=== PATIENT | male | born 1960 | race Hispanic/Latino ===

== ENCOUNTER 2017-09-15 14:49 | Emergency (ER) | payer BC ==
[2017-09-15 15:19] VITALS: BMI 38.5
[2017-09-15 15:23] VITALS: TEMP 98.9
[2017-09-15 16:26] LABS: FLUID TYPE SYNOVIAL FLUID
[2017-09-15 16:30] LABS: BASO # 0.05 K/mm3 (0.0-2.0); BASO % 0.5 % (0.0-3.0); EOS # 0.2 (0.0-0.7); EOS % 1.7 % (1.5-5.0); GRAN # 6.3 (1.4-6.5); GRAN % 57.8 % (50.0-68.0); HEMATOCRIT 40.1 % (42.0-52.0); LYMPH # 2.4 (1.2-3.4); LYMPH % 21.7 % (22.0-35.0); MEAN CORPUSCULAR HEMOGLOBIN 34.3 pg (25.0-35.0); MEAN CORPUSCULAR HGB CONC 33.9 g/dl (31.0-37.0); MONO % 18.3 % (1.0-6.0); RED CELL DISTRIBUTION WIDTH 12.3 % (11.5-14.5); WHITE BLOOD COUNT 10.9 10^3/ul (4.5-11.0)
[2017-09-15 16:41] LABS: INR 1.24 (0.93-1.08); PARTIAL THROMBOPLASTIN TIME 27.8 Seconds (25.1-36.5)
--- NOTE | 2017-09-15 16:43 | ED PDOC ---
Arrival/HPI - General Historian: Patient <Jessica Arnold A - Last Filed: 09/15/17 19:30> <Wilfrid Jansen - Last Filed: 09/17/17 18:52> - General Chief Complaint: Lower Extremity Problem/Injury Time Seen by Provider: 09/15/17 15:25 - History of Present Illness Narrative History of Present Illness (Text): 09/15/17 16:40 57yo male with PMHx of gout who was referred to ED by his PMD for right knee swelling/pain. Patient states the knee has been swollen for 2days. He saw his PMD today for steroid injection and was referred to ED. He states he had fever for 2hours yesterday. He denies trauma, chills, nausea, vomiting, any other complaint. (Jessica Arnold A) Past Medical History - Provider Review Nursing Documentation Reviewed: Yes - Infectious Disease Hx of Infectious Diseases: None - Cardiac Hx Cardiac Disorders: Yes Hx Hypertension: Yes - Renal Hx Kidney Stones: Yes - Integumentary Other/Comment: swelling left knee - Musculoskeletal/Rheumatological Hx Falls: No - Psychiatric Hx Substance Use: No - Surgical History Other/Comment: umbilical hernia sx with mesh, 2 arthoscopic knee sx's to remove cartilage about 20 yrs ago to left knee - Anesthesia Hx Anesthesia: Yes Hx Anesthesia Reactions: No Hx Malignant Hyperthermia: No - Suicidal Assessment Feels Threatened In Home Enviroment: No <Jessica Arnold A - Last Filed: 09/15/17 19:30> Family/Social History - Physician Review Nursing Documentation Reviewed: Yes Family/Social History: Unknown Family HX Smoking Status: Never Smoked Hx Alcohol Use: Yes (social) Hx Substance Use: No Hx Substance Use Treatment: No <Jessica Arnold A - Last Filed: 09/15/17 19:30> Allergies/Home Meds <Jessica Arnold A - Last Filed: 09/15/17 19:30> <Wilfrid Jansen - Last Filed: 09/17/17 18:52> Allergies/Adverse Reactions: Allergies No Known Allergies Allergy (Verified 09/15/17 15:19) Home Medications: Home Meds Medication Instructions Recorded Confirmed Colchicine [Colcrys] 0.6 mg PO TID 11/03/16 11/03/16 Labetalol [Trandate] 200 mg PO DAILY 11/03/16 11/03/16 Losartan Potassium [Cozaar] 100 mg PO DAILY 11/03/16 11/03/16 amLODIPine [Norvasc] 5 mg PO DAILY 11/03/16 11/03/16 cloNIDine [Catapres] 0.3 mg PO TID 11/03/16 11/03/16 Review of Systems - Physician Review All systems were reviewed & negative as marked: Yes - Review of Systems Constitutional: Normal Eyes: Normal ENT: Normal Respiratory: Normal Cardiovascular: Normal Gastrointestinal: Normal Genitourinary Male: Normal Musculoskeletal: Arthralgias (right knee pain/swelling) Skin: Normal Neurological: Normal Endocrine: Normal Hemo/Lymphatic: Normal Psychiatric: Normal <Diru,Happiness A - Last Filed: 09/15/17 19:30> Physical Exam Vital Signs Reviewed: Yes Temperature: Afebrile Blood Pressure: Normal Pulse: Regular Respiratory Rate: Normal Appearance: Positive for: Well-Appearing, Non-Toxic, Comfortable Pain Distress: None Mental Status: Positive for: Alert and Oriented X 3 - Systems Exam Head: Present: Atraumatic, Normocephalic Pupils: Present: PERRL Extroacular Muscles: Present: EOMI Conjunctiva: Present: Normal Mouth: Present: Moist Mucous Membranes Neck: Present: Normal Range of Motion Respiratory/Chest: Present: Clear to Auscultation, Good Air Exchange. No: Respiratory Distress, Accessory Muscle Use Cardiovascular: Present: Regular Rate and Rhythm, Normal S1, S2. No: Murmurs Abdomen: Present: Normal Bowel Sounds. No: Tenderness, Distention, Peritoneal Signs Back: Present: Normal Inspection Upper Extremity: Present: Normal Inspection. No: Cyanosis, Edema Lower Extremity: Present: Edema (2+), NORMAL PULSES, Tenderness (Diffuse right knee), Swelling (right knee), Neurovascularly Intact. No: CALF TENDERNESS, Cyanosis, Normal ROM (Limited on flexion secondary to pain), Erythema, Temperature Abnormalties Neurological: Present: GCS=15, CN II-XII Intact, Speech Normal Skin: Present: Warm, Dry, Normal Color. No: Rashes Psychiatric: Present: Alert, Oriented x 3, Normal Insight, Normal Concentration <Diru,Happiness A - Last Filed: 09/15/17 19:30> Vital Signs Temp Pulse Resp BP Pulse Ox 09/15/17 19:00 76 16 152/90 H 99 09/15/17 15:22 98.9 F 90 18 161/97 H 96 Medical Decision Making <Jessica Arnold - Last Filed: 09/15/17 19:30> <Wilfrid Jansen - Last Filed: 09/17/17 18:52> ED Course and Treatment: 09/15/17 19:30 PT was hemodynamcially stable in ED. Noted to be eating a sandwich. Case was DW Dr. Sands. He notes taht he saw patient in ED and referred him to ED for septic knee r/o. Lab was noted without leukocytosis. Doppler US was negative for DVT Dr. Delarosa saw patient in ED and did Arthrocentesis on the knee. synovial fluid show WBC of 100,000.00 with neutrophils. Plan was to admit pt for IV abx. Pt however declined admission. Case was KATHY Sin and he states patient can be DC home with oral abx to f/u with Dr. Delarosa. Patient was advised by Dr. Delarosa to see him on Monday. Vanco and Rocephin was given in ED. He will be DC home with Doxycycline and Augmentin. strongly advised to f/u with Dr. Delarosa on Monday. Advised TRT ED for any new or worsening symptoms. ( Jessica Arnold) - Lab Interpretations Microbiology Results: Microbiology Results 09/15/17 16:15 Blood-Venous Blood Culture - Preliminary NO GROWTH AFTER 48 HOURS Lab Results: 09/15/17 16:15 09/15/17 16:15 Lab Results 09/15/17 16:15: Fluid Type Synovial fluid, Synovial WBC 898128.0 H, Synovial RBC 2000.0 H, Synovial Neutrophils 92.7 H, Synovial Lymphocytes 7.3 H, Synov Monos/Macrophage TEST NOT PERFORMED, Synovial Fluid Comment Lt. yellow color 09/15/17 16:15: PT 13.6 H, INR 1.24 H, APTT 27.8 09/15/17 16:15: Sodium 137, Potassium 3.9, Chloride 100, Carbon Dioxide 26, Anion Gap 15, BUN 11, Creatinine 1.0, Est GFR ( Amer) > 60, Est GFR (Non- Af Amer) > 60, Random Glucose 156 H, Calcium 9.4, Total Bilirubin 1.4 H, AST 60 H, ALT 50, Alkaline Phosphatase 48, Total Protein 7.5, Albumin 4.1, Globulin 3.4 , Albumin/Globulin Ratio 1.2 09/15/17 16:15: WBC 10.9, RBC 3.97, Hgb 13.6 L, Hct 40.1 L, MCV 101.0, MCH 34.3 , MCHC 33.9, RDW 12.3, Plt Count 217, MPV 10.0, Gran % 57.8, Lymph % (Auto) 21.7 L, [place] % (Auto) 18.3 H, Eos % (Auto) 1.7, Baso % (Auto) 0.5, Gran # 6.30, Lymph # 2.4, [place] # 2.0 H, Eos # 0.2, Baso # 0.05 - RAD Interpretation Radiology Orders: 09/15/17 15:58 DUPLEX LOWER EXTRM VEIN RIGHT [US] Stat 09/15/17 16:55 KNEE W PATELLA RIGHT 3 VIEW [RAD] Stat - Medication Orders Current Medication Orders: Discontinued Medications Ceftriaxone Sodium (Rocephin 1 Gram Ivpb (D5w)) 1 gm in 100 mls @ 200 mls/hr IVPB STAT DIEGO PRN Reason: Protocol Last Admin: 09/15/17 18:01 Dose: 200 mls/hr eMAR Start Stop Document 09/15/17 18:01 SC (Rec: 09/15/17 18:01 SC [id number]) Intravenous Solution Start Date 09/15/17 Start Time 18:01 End Date 09/15/17 End time 18:31 Total Infusion Time 30 Vancomycin HCl (Vancomycin 1gm) 1 gm in 250 mls @ 167 mls/hr IVPB STAT STA PRN Reason: Protocol Stop: 09/15/17 19:03 Last Admin: 09/15/17 18:40 Dose: 167 mls/hr eMAR Start Stop Document 09/15/17 18:40 SC (Rec: 09/15/17 18:58 SC [id number]) Intravenous Solution Start Date 09/15/17 Start Time 18:40 End Date 09/15/17 End time 20:10 Total Infusion Time 90 - PA / HYDROPRESS OPERATOR / Resident Statement /DO has reviewed & agrees with the documentation as recorded. <Wilfrid Jansen - Last Filed: 09/17/17 18:52> Disposition/Present on Arrival - Present on Arrival Any Indicators Present on Arrival: No History of DVT/PE: No History of Uncontrolled Diabetes: No Urinary Catheter: No History of Decub. Ulcer: No History Surgical Site Infection Following: None - Disposition Have Diagnosis and Disposition been Completed?: Yes Disposition Time: 19:40 Patient Plan: Discharge <Jessica Arnold - Last Filed: 09/15/17 19:30> <Wilfrid Jansen - Last Filed: 09/17/17 18:52> - Disposition Diagnosis: Septic arthritis Disposition: HOME/ ROUTINE Condition: STABLE Discharge Instructions (ExitCare): Septic Arthritis (GEN) Additional Instructions: Follow up with Dr. Delarosa on Monday Return to ED immediately for redness, lethargy, worsening symptoms. Prescriptions: Amoxicillin/Clavulanate [Augmentin 875 MG-125 MG] 1 tab PO BID #20 tab Doxycycline Hyclate [Doryx] 100 mg PO BID #20 cap Referrals: Brien Sands MD [Primary Care Provider] - Follow up with primary Amrit Delarosa DO [Staff Provider] - Follow up with primary Forms: [employer] ([place])
[2017-09-15 16:45] LABS: ALB/GLOB RATIO 1.2 (1.1-1.8); ALKALINE PHOSPHATASE 48 U/L (38-126); ALT/SGPT 50 U/L (7-56); AST/SGOT 60 U/L (17-59); BILIRUBIN,TOTAL 1.4 mg/dL (0.2-1.3); BLOOD UREA NITROGEN 11 mg/dL (7-21); CALCIUM 9.4 mg/dL (8.4-10.5); CARBON DIOXIDE 26 mmol/L (21-33); CHLORIDE 100 mmol/L (98-107); GFR AFRICAN-AMERICAN > 60; GLUCOSE,RANDOM 156 mg/dL (70-110); POTASSIUM 3.9 mmol/L (3.6-5.0); SODIUM 137 mmol/L (132-148); TOTAL PROTEIN 7.5 g/dL (5.8-8.3)
[2017-09-15 16:52] LABS: SYNOVIAL FLUID LYMPHOCYTE 7.3 % (0-0); SYNOVIAL FLUID NEUTROPHIL 92.7 % (0-0); SYNOVIAL FLUID TOTAL COUNT 100 (0-0)
[2017-09-15] MEDS ORDERED: Vancomycin 1gm in NS 250ml 1 GM/250 ML BAG IVPB STA (17:34)
[2017-09-15] MEDS ORDERED: cefTRIAXone 1 gm 1 GM/100 ML BAG IVPB SCH (17:45)
--- NOTE | 2017-09-15 18:20 | RAD ---
PROCEDURE: Right Knee Radiographs. HISTORY: Right knee pain COMPARISON: None. FINDINGS: BONES: Normal. No fracture. JOINTS: Air within the suprapatellar bursa associate with small joint effusion suggests recent intervention, sampling of fluid from the joint effusion. JOINT EFFUSION: None. OTHER FINDINGS: None. IMPRESSION: No acute findings related to/accounting for the clinical presentation. Additional benign and/or incidental findings described above.
--- NOTE | 2017-09-15 19:26 | US ---
PROCEDURE: Right lower extremity venous US HISTORY: Leg pain and swelling. Evaluate for DVT. PHYSICIAN(S): Abraham Mar M.D. TECHNIQUE: Duplex sonography and color-flow Doppler with graded compression were used to evaluate the deep venous system of the right lower extremity. The exam is very limited by body habitus and edema P FINDINGS: The visualized deep venous system of the right lower extremity is sonographically normal and compressible. Normal waveforms and augmentation are seen. There is no sonographic evidence for deep venous thrombosis in the visualized segments of the right lower extremity. IMPRESSION: 1. No sonographic evidence for deep venous thrombosis in the visualized segments of the right lower extremity. 2. Limited study
[2017-09-15 20:16] VITALS: BP 152/90; PULSE 76; RESP 16; O2SAT 99
--- NOTE | 2017-09-16 02:22 | CON ---
ORTHOPEDIC CONSULTATION DATE: 09/15/2017 HISTORY OF PRESENT ILLNESS: The patient is a 57-year-old with acutely swollen right knee; past history of gout, a couple of years ago. I saw him today for swollen right knee, minimal ability to move in because of pain. I aspirated 60 mL of serosanguineous fluid, appears to be gout, no purulence, we sent the fluid for cell count, culture, and crystals, and I injected the knee with Depo-Medrol and Marcaine. So, it looks like an inflammatory arthritis, suspicious for gout, and to rule out infection or inflammatory arthritis. I will see him in the morning. Amrit Delarosa DO
== END 2017-09-15 20:16 | disposition home or self-care (01) ==
LOC: ED 14:49
DX: M00.9 Pyogenic arthritis, unspecified (principal); I10 Essential (primary) hypertension
CPT/HCPCS: 73562; 80053; 85025; 85610; 85730; 87040; 89051; 93971; 96365; 96367; 99284; J0696

== ENCOUNTER 2017-12-18 04:02 | Emergency (ER) | payer BC ==
[2017-12-18 04:02] VITALS: BMI 38.5
== END 2017-12-18 04:34 | disposition left against medical advice (07) ==
LOC: ED 04:02
DX: Z02.89 Encounter for other administrative examinations (principal); Z00.00 Encounter for general adult medical examination without abnormal findings

== ENCOUNTER 2018-04-06 09:27 | Observation (INO) | payer BC ==
--- NOTE | 2018-04-06 09:50 | ED PDOC ---
Arrival/HPI - General Chief Complaint: Chest Pain Time Seen by Provider: 04/06/18 09:49 Historian: Patient - History of Present Illness Narrative History of Present Illness (Text): 04/06/18 09:55 58 year old male, whose PMH includes hypertension, diabetes, and kidney stones, who presents to the emergency department complaining of congestion since one week associated with cough, left sided rib pain, and clear sputum. He states then he started to develop anterior lower chest pain not associated with coughing. He did feel it a bit when he was moving but it's hard to lay flat. He says he gets an upset stomach as well. Patient also reports having lack of appetite, chills, and diaphoresis. Patient denies sick contacts at home, fever, nausea, vomiting, diarrhea, or other complaints. PMD: Dr. Yang Time/Duration: 1 week Symptom Onset: Gradual Symptom Course: Unchanged Quality: Aching Activities at Onset: Rest Context: Home Past Medical History - Provider Review Nursing Documentation Reviewed: Yes - Infectious Disease Hx of Infectious Diseases: None - Cardiac Hx Cardiac Disorders: Yes Hx Hypertension: Yes - Pulmonary Hx Respiratory Disorders: No - Neurological Hx Neurological Disorder: No - HEENT Hx HEENT Disorder: No - Renal Hx Renal Disorder: Yes Hx Kidney Stones: Yes - Endocrine/Metabolic Hx Endocrine Disorders: Yes Hx Diabetes Mellitus Type 2: Yes - Hematological/Oncological Hx Blood Disorders: No - Integumentary Hx Dermatological Disorder: No - Musculoskeletal/Rheumatological Hx Musculoskeletal Disorders: Yes Other/Comment: KNEE PAIN - Gastrointestinal Hx Gastrointestinal Disorders: Yes Hx Constipation: Yes - Genitourinary/Gynecological Hx Genitourinary Disorders: No - Psychiatric Hx Psychophysiologic Disorder: No Hx Substance Use: No - Surgical History Other/Comment: umbilical hernia sx with mesh, 2 arthoscopic knee sx's to remove cartilage about 20 yrs ago to left knee - Anesthesia Hx Anesthesia: Yes Hx Anesthesia Reactions: No Hx Malignant Hyperthermia: No - Suicidal Assessment Feels Threatened In Home Enviroment: No Family/Social History - Physician Review Nursing Documentation Reviewed: Yes Family/Social History: Unknown Family HX Smoking Status: Never Smoked Hx Alcohol Use: Yes (social) Hx Substance Use: No Hx Substance Use Treatment: No Allergies/Home Meds Allergies/Adverse Reactions: Allergies No Known Allergies Allergy (Verified 04/06/18 09:33) Home Medications: Home Meds Medication Instructions Recorded Confirmed Labetalol [Trandate] 300 mg PO DAILY 11/03/16 04/06/18 Losartan Potassium [Cozaar] 100 mg PO DAILY 11/03/16 04/06/18 cloNIDine [Catapres] 0.3 mg PO TID 11/03/16 04/06/18 Aspirin [Adult Aspirin] 1 tab PO DAILY 04/06/18 04/06/18 Colchicine [Mitigare] 1 tab PO PRN PRN 04/06/18 04/06/18 Fenofibrate [Tricor] 1 tab PO DAILY 04/06/18 04/06/18 Furosemide [Lasix] 1 tab PO DAILY 04/06/18 04/06/18 hydrALAZINE [Apresoline] 1 tab PO TID 04/06/18 04/06/18 metFORMIN [glucOPHAGE] 1 tab PO BID 04/06/18 04/06/18 Review of Systems - Review of Systems Constitutional: absent: Fevers ENT: absent: Sinus Congestion Respiratory: Cough, Sputum Cardiovascular: Other (congestion ) Gastrointestinal: absent: Diarrhea, Vomiting Musculoskeletal: Other (left sided rib pain secondary to coughing ) Neurological: absent: Headache, Dizziness Endocrine: Diaphoresis Physical Exam Vital Signs Reviewed: Yes Vital Signs Temp Pulse Resp BP Pulse Ox 04/06/18 09:37 98.1 F 85 18 158/105 H 99 Temperature: Afebrile Blood Pressure: Hypertensive Pulse: Regular Respiratory Rate: Normal Appearance: Positive for: Well-Appearing, Non-Toxic, Comfortable Pain Distress: None Mental Status: Positive for: Alert and Oriented X 3 - Systems Exam Head: Present: Atraumatic, Normocephalic Pupils: Present: PERRL Extroacular Muscles: Present: EOMI Conjunctiva: Present: Normal Respiratory/Chest: Present: Clear to Auscultation, Good Air Exchange. No: Respiratory Distress, Accessory Muscle Use, Wheezes, Decreased Breath Sounds, Rales, Retracting, Rhonchi Cardiovascular: Present: Regular Rate and Rhythm, Normal S1, S2. No: Murmurs Abdomen: Present: Normal Bowel Sounds. No: Tenderness, Distention, Peritoneal Signs, Rebound, Guarding Lower Extremity: Present: Normal Inspection, NORMAL PULSES, Normal ROM, Neurovascularly Intact, Capillary Refill < 2 s. No: Edema, Cyanosis, Tenderness , Swelling, Erythema, Deformity Neurological: Present: GCS=15, CN II-XII Intact, Speech Normal Skin: Present: Warm, Dry, Normal Color. No: Rashes Psychiatric: Present: Alert, Oriented x 3, Normal Insight, Normal Concentration Medical Decision Making ED Course and Treatment: 04/06/18 Impression: 58 year old male with unremarkable physical exam complaining of coughing and congestion, chest pain Differential Diagnosis included but are not limited to: Pneumonia vs Bronchitis Plan: -- EKG -- Chest X-ray -- Labs -- Reassess and disposition Progress Notes: EKG: Ordered, reviewed, and independently interpreted the EKG. Rate : 85 BPM Rhythm : NSR Interpretation : No ST-segment elevations or depressions, no T-wave inversions, normal intervals. Comparison : No previous EKG for comparison. 04/06/18 11:19 Patient was found to have severe hypomagnesia. Stat Magnesium 2gm IV was ordered. Potassium was also low so he was treated with Potassium 40meq PO. Patient's at this time does not have pain but he says he gets it intermittently. I discussed the case with Dr. Ponce and will place the patient on Telemetry for Hypomagnesemia and Chest pain r/o acs. - Critical Care Critical Care Minutes: 30 minutes - Lab Interpretations Lab Results: 04/06/18 10:10 04/06/18 10:10 Lab Results 04/06/18 10:10: Influenza Typ A,B (EIA) Negative for flu a/b 04/06/18 10:10: Sodium 140, Potassium 3.3 L, Chloride 95 L, Carbon Dioxide 31, Anion Gap 17, BUN 13, Creatinine 1.0, Est GFR ( Amer) > 60, Est GFR (Non- Af Amer) > 60, Random Glucose 160 H, Calcium 9.1, Magnesium 0.9 L*, Lactate Dehydrogenase 477, Total Creatine Kinase 532 H, CK-MB (CK-2) 5.6 H, CK-MB (CK-2 ) % 1.1 L, Troponin I 0.03 04/06/18 10:10: WBC 8.4 D, RBC 3.81, Hgb 12.9 L, Hct 38.0 L, MCV 99.7, MCH 33.9 , MCHC 33.9, RDW 12.5, Plt Count 229, MPV 9.8, Gran % 56.2, Lymph % (Auto) 26.6 , [place] % (Auto) 14.8 H, Eos % (Auto) 1.7, Baso % (Auto) 0.7, Gran # 4.72, Lymph # (Auto) 2.2, [place] # (Auto) 1.2 H, Eos # (Auto) 0.1, Baso # (Auto) 0.06 I have reviewed the lab results: Yes - RAD Interpretation Radiology Orders: 04/06/18 09:59 CHEST TWO VIEWS (PA/LAT) [RAD] Stat Make Up Operator: Radiologist - EKG Interpretation Interpreted by ED Physician: Yes Type: 12 lead EKG - Medication Orders Current Medication Orders: Discontinued Medications Magnesium Sulfate (Magnesium Sulfate 2 Gm/50 Ml Water) 2 gm in 50 mls @ 100 mls /hr IVPB ONCE ONE Stop: 04/06/18 11:17 Potassium Chloride (K-Dur 20 Meq Er Tab) 40 meq PO STAT STA Stop: 04/06/18 10:48 - Scribe Statement The provider has reviewed the documentation as recorded by the Luis Mccain Provider Scribe Attestation: All medical record entries made by the Scribe were at my direction and personally dictated by me. I have reviewed the chart and agree that the record accurately reflects my personal performance of the history, physical exam, medical decision making, and the department course for this patient. I have also personally directed, reviewed, and agree with the discharge instructions and disposition. Disposition/Present on Arrival - Present on Arrival Any Indicators Present on Arrival: Yes History of DVT/PE: No History of Uncontrolled Diabetes: Yes Urinary Catheter: No History of Decub. Ulcer: No History Surgical Site Infection Following: None - Disposition Have Diagnosis and Disposition been Completed?: Yes Diagnosis: Chest pain, Hypomagnesemia Disposition Time: 11:21 Patient Plan: Admission Condition: FAIR Discharge Instructions (ExitCare): Chest Pain (ED) Forms: [employer] ([place]ian)
[2018-04-06 10:25] LABS: BASO # 0.06 K/mm3 (0.0-2.0); BASO % 0.7 % (0.0-3.0); EOS # 0.1 (0.0-0.7); EOS % 1.7 % (1.5-5.0); GRAN # 4.72 (1.4-6.5); GRAN % 56.2 % (50.0-68.0); HEMOGLOBIN 12.9 g/dL (14.0-18.0); LYMPH # 2.2 (1.2-3.4); LYMPH % 26.6 % (22.0-35.0); MEAN CELL VOLUME 99.7 fl (80.0-105.0); MEAN CORPUSCULAR HEMOGLOBIN 33.9 pg (25.0-35.0); MEAN CORPUSCULAR HGB CONC 33.9 g/dl (31.0-37.0); MEAN PLATELET VOLUME 9.8 fl (7.0-11.0); MONO # 1.2 (0.1-0.6); MONO % 14.8 % (1.0-6.0); RBC 3.81 10^6/uL (3.5-6.1); RED CELL DISTRIBUTION WIDTH 12.5 % (11.5-14.5); WHITE BLOOD COUNT 8.4 10^3/ul (4.5-11.0)
[2018-04-06 10:43] LABS: BLOOD UREA NITROGEN 13 mg/dL (7-21); CALCIUM 9.1 mg/dL (8.4-10.5); GFR AFRICAN-AMERICAN > 60; GFR NON-AFRICAN AMERICAN > 60; TROPONIN I 0.03 ng/mL
[2018-04-06 10:47] LABS: CK MB% 1.1 % (2.5-3.0); CK-MB 5.6 ng/mL (0.0-3.6)
[2018-04-06] MEDS ORDERED: Potassium Chloride 20 mEq ER Tab PO STA (10:47)
[2018-04-06] MEDS ORDERED: Magnesium Sulfate 2 gm/50 ml 2 GM/50 ML BAG IVPB ONE (10:48)
[2018-04-06 11:38] VITALS: O2SAT 96
--- NOTE | 2018-04-06 12:01 | RAD ---
HISTORY: cough r/o pna COMPARISON: No prior. TECHNIQUE: Chest PA and lateral FINDINGS: LUNGS: No active pulmonary disease. PLEURA: No significant pleural effusion identified. No pneumothorax apparent. CARDIOVASCULAR: Normal. OSSEOUS STRUCTURES: No significant abnormalities. VISUALIZED UPPER ABDOMEN: Normal. OTHER FINDINGS: None. IMPRESSION: No active disease.
[2018-04-06] MEDS ORDERED: guaiFENesin-DM 600-30 mg ER Tab PO PRN (14:49)
[2018-04-06 15:28] LABS: TROPONIN I 0.02 ng/mL
[2018-04-06 15:37] VITALS: BMI 36.4
[2018-04-06] MEDS ORDERED: Pneumococcal 23-Valent Vaccine IM ONE (15:37)
--- NOTE | 2018-04-06 15:52 | CP.PCM.HP ---
<PraveenRichie matthews - Last Filed: 04/06/18 18:00> History of Present Illness - History of Present Illness History of Present Illness: CC: Left-sided rib and chest pain and cough Mr. Newby is a 58 year old male with past medical history of hypertension, diabetes, gout, and hyperlipidemia presenting to the ED with left sided chest pain and cough. Patient states the pain started on his left rib 3 days ago and today radiating to the anterior chest. He describes the pain to be intermittent , achy, 5/10 at its worst, made worse with coughing and when taking a deep breath. The patient has not taken any medication for the pain. The pain is reproducible with palpation to the lower left ribs and feels that the pain radiates anteriorly. Patient is also complaining of a dry cough that he has been having for one year. He describes the cough to be non-productive but sometimes clear mucus comes out and usually occur at night. Patient currently does not have any chest pain or cough. He denies having shortness of breath, fever, chills, abdominal pain, nausea, vomiting, or diarrhea. PCP: Dr. Yang PMH: HTN, DM 2, gout, hyperlipidemia. PSHx: Hernia surgery and knee arthroscopy on left knee more than 20 years ago. Tonsilectomy as a child. Allergies: NKDA Social Hx: Drinks half a pint of vodka everyday and have been drinking for many years, denies tobacco use and recreational drug use. Family history: Mother had heart disease with stents and of cancer. Father also had heart disease with stents but does not know the cause of . Present on Admission - Present on Admission Any Indicators Present on Admission: No History of DVT/PE: No History of Uncontrolled Diabetes: No Urinary Catheter: No Decubitus Ulcer Present: No Review of Systems - Review of Systems Review of Systems: A 12 point ROS was performed and was negative except as stated in the HPI. Past Patient History - Infectious Disease Hx of Infectious Diseases: None - Tetanus Immunizations Tetanus Immunization: Unknown - Past Social History Smoking Status: Never Smoked Occupation: network security administrator - CARDIAC Hx Cardiac Disorders: Yes Hx Hypercholesterolemia: Yes Hx Hypertension: Yes - PULMONARY Hx Respiratory Disorders: Yes Hx Pneumonia: Yes - NEUROLOGICAL Hx Neurological Disorder: No - HEENT Hx HEENT Problems: No - RENAL Hx Chronic Kidney Disease: No Hx Kidney Stones: No - ENDOCRINE/METABOLIC Hx Endocrine Disorders: Yes Hx Diabetes Mellitus Type 2: Yes - HEMATOLOGICAL/ONCOLOGICAL Hx Blood Disorders: No - INTEGUMENTARY Hx Dermatological Problems: No - MUSCULOSKELETAL/RHEUMATOLOGICAL Hx Musculoskeletal Disorders: Yes (2 ARTHROSCOPIC LEFT KNEE SURGERY) Hx Gout: Yes Other/Comment: KNEE PAIN - GASTROINTESTINAL Hx Gastrointestinal Disorders: Yes (UMBILICAL HERNIA SX) Hx Constipation: Yes - GENITOURINARY/GYNECOLOGICAL Hx Genitourinary Disorders: No - PSYCHIATRIC Hx Psychophysiologic Disorder: No - SURGICAL HISTORY Hx Surgeries: Yes Hx Arthroscopy: Yes (x2 on Left knee) Hx Herniorrhaphy: Yes Hx Tonsillectomy: Yes Other/Comment: umbilical hernia sx with mesh, 2 arthoscopic knee sx's to remove cartilage about 20 yrs ago to left knee - ANESTHESIA Hx Anesthesia: Yes Hx Anesthesia Reactions: No Hx Malignant Hyperthermia: No Meds Allergies/Adverse Reactions: Allergies Allergy/AdvReac Type Severity Reaction Status Date / Time No Known Allergies Allergy Verified 04/06/18 12:59 Physical Exam - Constitutional Appears: Well, No Acute Distress - Head Exam Head Exam: ATRAUMATIC, NORMAL INSPECTION - Eye Exam Eye Exam: Normal appearance Pupil Exam: PERRL - ENT Exam ENT Exam: Mucous Membranes Moist - Respiratory Exam Respiratory Exam: Clear to Auscultation Bilateral, NORMAL BREATHING PATTERN. absent: Rales, Rhonchi, Wheezes - Cardiovascular Exam Cardiovascular Exam: REGULAR RHYTHM, +S1, +S2. absent: Gallop, Rubs, Systolic Murmur - GI/Abdominal Exam GI & Abdominal Exam: Normal Bowel Sounds, Soft. absent: Tenderness Additional comments: Obese - Extremities Exam Extremities exam: Negative for: normal inspection, tenderness Additional comments: Hyperpigmentation on the lower right leg. Pitting edema present +2 on the right leg and +1 on the left leg. - Neurological Exam Neurological exam: Alert, Oriented x3 - Psychiatric Exam Psychiatric exam: Normal Affect, Normal Mood - Skin Skin Exam: Dry, Normal Color, Warm Results - Vital Signs Recent Vital Signs: Last Vital Signs Temp 98.1 F 04/06/18 15:05 Pulse 79 04/06/18 15:05 Resp 18 04/06/18 15:05 BP 124/77 04/06/18 15:05 Pulse Ox 96 04/06/18 11:52 - Labs Result Diagrams: 04/06/18 10:10 04/06/18 10:10 Labs: Laboratory Results - last 24 hr 04/06/18 04/06/18 14:50 14:50 Magnesium 1.4 L Troponin I 0.02 D TSH 3rd Generation 5.28 H Assessment & Plan - Assessment and Plan (Free Text) Assessment: Assessment: Mr. Newby is a 58 year old male with PMH of HTN, DM 2, gout, and hyperlipidemia presenting to the ED with left rib pain and chest pain and also a cough. Plan: Left-sided chest pain - Most likely musculoskeletal since pain is reproducible, need to rule out ACS. - EKG: rate was 85, normal sinus rhythm, inverted T-waves in V1. - Troponins 0.03, will continue to monitor every 6 hours. - Cardiology consulted, appreciate recommendations. - CAT NSTEMI score = 2. Hypomagnesemia - Magnesium level was 0.9 in the ED. Has improved to 1.4 after administrating IV magnesium in the ED - Potassium level was 3.3, recheck once magnesium levels are normal. - Patient was given 40 mEq PO in the ED - Continue to monitor magnesium levels Chronic non-productive cough - Possibly related to acid reflux secondary to heavy alcohol use. - Start Mucinex. Alcohol abuse disorder - CIWA protocol ordered. - Patient was advised to discontinue alcohol use. History of hypertension - Continue home medications: Losartan 100mg QD, Hydralazine 10mg TID, Clonidine 0.3 TID, Labetolol 600mg QID. - Hold medications if systolic blood pressure below 100 and heart rate below 60. Lower leg edema - Venous duplex of lower extremities ordered to rule out DVT. History of diabetes - Hold metformin. - Start Insulin sliding scale. - Daily Accu checks. Patient case reviewed with and plan approved by attending physician, Dr. Ponce. - Date & Time Date: 04/06/18 Time: 16:25 <Alla Ponce R - Last Filed: 04/07/18 14:16> Results - Vital Signs Recent Vital Signs: Last Vital Signs Temp 97.9 F 04/07/18 12:00 Pulse 71 04/07/18 12:00 Resp 20 04/07/18 12:00 BP 135/93 H 04/07/18 12:00 Pulse Ox 96 04/06/18 14:00 - Labs Result Diagrams: 04/07/18 06:00 04/07/18 06:00 Labs: Laboratory Results - last 24 hr 04/06/18 04/06/18 04/06/18 14:50 14:50 16:15 WBC RBC Hgb Hct MCV MCH MCHC RDW Plt Count MPV Sodium Potassium Chloride Carbon Dioxide Anion Gap BUN Creatinine Est GFR ( Amer) Est GFR (Non-Af Amer) POC Glucose (mg/dL) 138 H Random Glucose Calcium Phosphorus Magnesium 1.4 L Total Bilirubin AST ALT Alkaline Phosphatase Troponin I 0.02 D Total Protein Albumin Globulin Albumin/Globulin Ratio Triglycerides Cholesterol LDL Cholesterol Direct HDL Cholesterol Thyroxine (T4) TSH 3rd Generation 5.28 H 04/06/18 04/06/18 04/07/18 21:38 21:42 06:00 WBC 7.3 RBC 3.89 Hgb 13.1 L Hct 39.2 L MCV 100.8 MCH 33.7 MCHC 33.4 RDW 12.3 Plt Count 252 MPV 10.1 Sodium Potassium Chloride Carbon Dioxide Anion Gap BUN Creatinine Est GFR ( Amer) Est GFR (Non-Af Amer) POC Glucose (mg/dL) 139 H Random Glucose Calcium Phosphorus Magnesium Total Bilirubin AST ALT Alkaline Phosphatase Troponin I < 0.01 D Total Protein Albumin Globulin Albumin/Globulin Ratio Triglycerides Cholesterol LDL Cholesterol Direct HDL Cholesterol Thyroxine (T4) TSH 3rd Generation 04/07/18 04/07/18 04/07/18 06:00 06:30 07:29 WBC RBC Hgb Hct MCV MCH MCHC RDW Plt Count MPV Sodium 141 Potassium 3.6 Chloride 97 L Carbon Dioxide 29 Anion Gap 18 BUN 13 Creatinine 1.0 Est GFR ( Amer) > 60 Est GFR (Non-Af Amer) > 60 POC Glucose (mg/dL) 140 H Random Glucose 145 H Calcium 9.2 Phosphorus 2.8 Magnesium 1.6 L Total Bilirubin 1.2 AST 55 ALT 53 Alkaline Phosphatase 35 L D Troponin I Total Protein 7.3 Albumin 4.3 Globulin 3.0 Albumin/Globulin Ratio 1.4 Triglycerides 262 H Cholesterol 202 H LDL Cholesterol Direct 129 HDL Cholesterol 37 Thyroxine (T4) 9.1 TSH 3rd Generation 04/07/18 11:15 WBC RBC Hgb Hct MCV MCH MCHC RDW Plt Count MPV Sodium Potassium Chloride Carbon Dioxide Anion Gap BUN Creatinine Est GFR ( Amer) Est GFR (Non-Af Amer) POC Glucose (mg/dL) 144 H Random Glucose Calcium Phosphorus Magnesium Total Bilirubin AST ALT Alkaline Phosphatase Troponin I Total Protein Albumin Globulin Albumin/Globulin Ratio Triglycerides Cholesterol LDL Cholesterol Direct HDL Cholesterol Thyroxine (T4) TSH 3rd Generation Attending/Attestation - Attestation I have personally seen and examined this patient.: Yes I have fully participated in the care of the patient.: Yes I have reviewed all pertinent clinical information: Yes Notes (Text): Patient seen and examined by me at 1:30PM 04/06/18 with resident at bedside. Case including physical assessment and plan discussed with resident. Agree with above with following additions/changes. Patient is a 58-year-old male with past medical history significant for hypertension, type 2 diabetes, gout, and hypercholesterolemia that presented to the emergency room with left-sided rib pain radiating to the anterior chest. Patient states that he came in because he thought he may have pneumonia. He has been coughing. However he states this has been going on for 1 year. Cough is dry and worse at night. The left-sided rib pain comes and goes. " Achy" in nature. Patient did not try any medications for this at home. Patient states that he felt a pressure in his anterior chest. This lasted 15-20 minutes and resolved. No associated diaphoresis, nausea, or vomiting. No shortness of breath. No abdominal pain. No fevers or chills. No headaches or dizziness. Patient has a history of constipation, however, last bowel movement was yesterday. Patient takes MiraLAX at home for this. Patient does drink half a pint of alcohol daily. Does not want to quit. 14 point review of systems reviewed by me. Please see HPI. All other systems are negative. Home medications reviewed with patient by me. Physical exam: Gen: Patient is awake and alert sitting up in bed in no acute distress HEENT: Normocephalic atraumatic, extraocular muscles intact, pupils equal reactive, oropharynx is pink and moist, no pharyngeal erythema or exudate appreciated, neck is supple. Hearing grossly intact. Ears and nose externally unremarkable. Cardiovascular: Normal rhythm, normal S1-S2, no murmurs rubs or gallops appreciated Pulmonary: Normal respiratory effort. No rhonchi, rales, or wheezing appreciated Gastrointestinal: Soft, obese abdomen, nontender, nondistended, positive bowel sounds all 4 quadrants, no guarding Musculoskeletal: Moves all extremities, no calf tenderness, no CVA tenderness Central nervous system: AAO 3 Dermatologic: Skin warm and dry Assessment and plan: Patient is a 58-year-old male that presented with left- sided rib pain radiating to the anterior chest. 1. Left-sided rib and chest pain. Probably secondary to persistent cough. Will rule out ACS. Monitor serial troponins. Follow-up repeat EKG. Will check 2-D echo. Will check hemoglobin A1c, TSH, lipid panel. Cardiology consulted, follow- up recommendations. Monitor on telemetry. Patient advised to follow up with primary care doctor for cough that he has had for one year now. This may be secondary to chronic alcohol use and possibly underlying reflux. 2. Severe hypomagnesemia. Likely secondary to alcohol abuse. Patient given IV replacement. Follow up repeat labs and replace as needed. Patient counseled on alcohol cessation. 3. Alcohol abuse. Patient placed on CIWA protocol. Place on thiamine and folic acid. Patient counseled on cessation. Monitor for withdrawal symptoms. 4. Essential hypertension. Continue home medications losartan, hydralazine, clonidine, labetalol. 5. Lower extremity edema. Per patient chronic. We'll rule out DVT. Follow-up for extremity venous Dopplers. Continue home Lasix. 6. Type [address] insulin scale. Diabetic diet. Monitor Accu-Cheks. Follow-up hemoglobin A1c. 7. Hypercholesterolemia. Continue home TriCor. 8. Patient is a full code Case was discussed in detail with the patient, patient's at bedside, and medical coding specialist regarding current diagnosis and treatment plan
[2018-04-06] MEDS: Insulin Reg-LOW-Coverage SC SCH ×2 (16:56→21:49)
[2018-04-06] MEDS: Magnesium Oxide 400 mg Tab UD PO SCH (19:00)
[2018-04-06] MEDS ORDERED: Magnesium 2 gm/50 ml NS 2 GM/50 ML BAG IVPB ONE (23:58)
[2018-04-07 02:05] VITALS: RESP 20
--- NOTE | 2018-04-07 06:39 | CON ---
DATE: 04/06/2018 REASON FOR CONSULTATION: Left-sided rib pain, chest pain, cough. BRIEF CLINICAL HISTORY: This is a 58-year-old obese male with past medical history of diabetes, hypertension, hyperlipidemia, came to the emergency room with complaint of pain in the rib and twisting across the left side to the back, then later on, on coughing it went across the chest, so came to the emergency room. Denies any episode of angina on walking or dyspnea on exertion, though patient is obese and feels some shortness of breath, but no chest pain. PAST MEDICAL HISTORY: Significant for diabetes, hypertension, hyperlipidemia, obesity, and gout. SOCIAL HISTORY: Denies any history of smoking. Denies any history of alcohol abuse. FAMILY HISTORY: Significant for coronary artery disease. Mother had heart disease and stent, with cancer. Father also had heart disease and had a stent. PAST SURGICAL HISTORY: Significant for hernia surgery, left knee surgery, tonsillectomy, and cardiac catheterization 10 years ago by me. ALLERGIES: NO KNOWN DRUG ALLERGIES. CURRENT MEDICATIONS: Patient is taking labetalol, aspirin, colchicine, losartan, Lasix, fenofibrate, hydralazine, clonidine, metformin. REVIEW OF SYSTEMS: As per HPI. PHYSICAL EXAMINATION: VITAL SIGNS: Height of the patient 5 feet 10 inches, weight of the patient 254 pounds, body mass index 36.4 kg/m2. Heart rate 72, blood pressure 142/93. HEENT: PERRLA. Extraocular muscles intact. NECK: Supple. No carotid bruit. No thyromegaly. CHEST: Clear to auscultation. HEART: S1 and S2 regular. ABDOMEN: Soft. EXTREMITIES: Clubbing and cyanosis negative. LABORATORY DATA: Blood workup as follow; WBC 8.4, hemoglobin 12.9, hematocrit 38, platelet count 229. Chemistry shows sodium 140, potassium 3.3, chloride 95, carbon dioxide 30, anion gap of 17, BUN 13, creatinine 1. Troponin 0.03, 0.02. Magnesium 1.4. IMPRESSION: Morbid obesity, diabetes, hypertension, hyperlipidemia, atypical chest pain, history of cardiac catheterization many years ago and was negative. Recommend for risk stratification, stress test and echo. If troponin remains negative, patient can be discharged. Follow up stress test as an outpatient, aggressively supplement potassium, lipid profile, TSH, hemoglobin A1c. We will follow with you. We will discuss with Dr. Fiore. Thank you, Dr. Fiore/ for providing us the opportunity in taking care of the patient, Jesus Newby. Carmen Celestin MD
[2018-04-07 07:07] LABS: HEMOGLOBIN 13.1 g/dL (14.0-18.0); MEAN CELL VOLUME 100.8 fl (80.0-105.0); MEAN CORPUSCULAR HEMOGLOBIN 33.7 pg (25.0-35.0); MEAN CORPUSCULAR HGB CONC 33.4 g/dl (31.0-37.0); MEAN PLATELET VOLUME 10.1 fl (7.0-11.0); RBC 3.89 10^6/uL (3.5-6.1); RED CELL DISTRIBUTION WIDTH 12.3 % (11.5-14.5); WHITE BLOOD COUNT 7.3 10^3/ul (4.5-11.0)
[2018-04-07 07:25] LABS: ALB/GLOB RATIO 1.4 (1.1-1.8); ALBUMIN 4.3 g/dL (3.0-4.8); ALT/SGPT 53 U/L (7-56); AST/SGOT 55 U/L (17-59); BLOOD UREA NITROGEN 13 mg/dL (7-21); CALCIUM 9.2 mg/dL (8.4-10.5); GFR AFRICAN-AMERICAN > 60; GFR NON-AFRICAN AMERICAN > 60; HDL CHOLESTEROL 37 mg/dL (29-60)
[2018-04-07 07:36] LABS: LDL CHOLESTEROL 129 mg/dL (0-129)
[2018-04-07] MEDS: Insulin Reg-LOW-Coverage SC SCH ×2 (07:51→11:51)
[2018-04-07] MEDS ORDERED: Magnesium 2 gm/50 ml NS 2 GM/50 ML BAG IVPB ONE (08:47)
--- NOTE | 2018-04-07 09:01 | CARD ---
APPROVED REPORT EKG Measurement Heart [id number] <Conclusion> Normal sinus rhythm Nonspecific ST abnormality Mildly prolonged QTc
[2018-04-07] MEDS: Magnesium Oxide 400 mg Tab UD PO SCH (09:17)
--- NOTE | 2018-04-07 09:17 | CARD ---
APPROVED REPORT EKG Measurement Heart [id number] <Conclusion> Normal sinus rhythm Nonspecific ST abnormality Prolonged QT No change
[2018-04-07] MEDS ORDERED: POLYETHYLENE GLYCOL 3350 17 GM/Dose PACKET PO ONE (10:51)
[2018-04-07 13:39] VITALS: BP 135/93; TEMP 97.9
[2018-04-07 15:03] VITALS: PULSE 73
--- NOTE | 2018-04-08 08:31 | CARD ---
APPROVED REPORT EXAM: Two-dimensional and M-mode echocardiogram with Doppler and color Doppler. Other Information Quality : AverageRhythm : INDICATION Chest Pain 2D DIMENSIONS IVSd1.2 (0.7-1.1cm)LVDd5.2 (3.9-5.9cm) PWd1.2 (0.7-1.1cm)LVDs3.7 (2.5-4.0cm) FS (%) 28.1 %LVEF (%)54.0 (>50%) M-Mode DIMENSIONS Left Atrium (MM)4.00 (2.5-4.0cm)Aortic Root3.40 (2.2-3.7cm) Aortic Cusp Exc.2.30 (1.5-2.0cm) Aortic Valve AoV Peak Cmvvubjo229.0cm/s Mitral Valve MV E Pqlifmxs66.2cm/sMV A Jdwyoyhi873.0cm/sE/A ratio0.6 TDI Lateral E' Peak V8.19cm/sMedial E' Peak V5.65cm/sE/Lateral E'8.8 E/Medial E'12.8 Tricuspid Valve TR Peak Ujpeoutl178ta/sRAP [id number] Peak Gr.41mmHg [id number] LEFT VENTRICLE The left ventricle is normal size. There is normal left ventricular wall thickness. The left ventricular function is normal. The left ventricular ejection fraction is within the normal range. There is normal LV segmental wall motion. RIGHT VENTRICLE The right ventricle is normal size. ATRIA The left atrium size is normal. The right atrium size is normal. The interatrial septum is intact with no evidence for an atrial septal defect. AORTIC VALVE The aortic valve is normal in structure. MITRAL VALVE The mitral valve is normal in structure. Mitral regurgitation is trace. TRICUSPID VALVE The tricuspid valve is normal in structure. There is trace to mild tricuspid regurgitation. There is moderate pulmonary hypertension. PULMONIC VALVE The pulmonic valve is not well visualized. GREAT VESSELS The aortic root is normal in size. PERICARDIAL EFFUSION There is no pleural effusion. <Conclusion> The left ventricle is normal size. There is normal left ventricular wall thickness. The left ventricular function is normal. Moderate PH.
--- NOTE | 2018-04-08 14:59 | CP.PCM.DIS ---
<Mohini Siddiqi L - Last Filed: 04/08/18 17:31> Provider - Provider Date of Admission: 04/06/18 11:21 Attending physician: Alla Ponce DO Primary care physician: Jonathan Yang DO Consults: Cardiology: Dr. Celestin Time Spent in preparation of Discharge (in minutes): 45 Diagnosis - Discharge Diagnosis (1) Chest pain Status: Resolved (2) Hypomagnesemia Status: Resolved (3) History of hypertension Status: Chronic (4) History of diabetes mellitus Status: Chronic (5) History of gout Status: Chronic (6) History of hyperlipidemia Status: Chronic Hospital Course - Lab Results Lab Results: Most Recent Lab Values WBC 7.3 10^3/ul (4.5-11.0) 04/07/18 06:00 RBC 3.89 10^6/uL (3.5-6.1) 04/07/18 06:00 Hgb 13.1 g/dL (14.0-18.0) L 04/07/18 06:00 Hct 39.2 % (42.0-52.0) L 04/07/18 06:00 MCV 100.8 fl (80.0-105.0) 04/07/18 06:00 MCH 33.7 pg (25.0-35.0) 04/07/18 06:00 MCHC 33.4 g/dl (31.0-37.0) 04/07/18 06:00 RDW 12.3 % (11.5-14.5) 04/07/18 06:00 Plt Count 252 10^3/uL (120.0-450.0) 04/07/18 06:00 MPV 10.1 fl (7.0-11.0) 04/07/18 06:00 Gran % 56.2 % (50.0-68.0) 04/06/18 10:10 Lymph % (Auto) 26.6 % (22.0-35.0) 04/06/18 10:10 Letcher % (Auto) 14.8 % (1.0-6.0) H 04/06/18 10:10 Eos % (Auto) 1.7 % (1.5-5.0) 04/06/18 10:10 Baso % (Auto) 0.7 % (0.0-3.0) 04/06/18 10:10 Gran # 4.72 (1.4-6.5) 04/06/18 10:10 Lymph # (Auto) 2.2 (1.2-3.4) 04/06/18 10:10 Letcher # (Auto) 1.2 (0.1-0.6) H 04/06/18 10:10 Eos # (Auto) 0.1 (0.0-0.7) 04/06/18 10:10 Baso # (Auto) 0.06 K/mm3 (0.0-2.0) 04/06/18 10:10 Sodium 141 mmol/L (132-148) 04/07/18 06:00 Potassium 3.6 mmol/L (3.6-5.0) 04/07/18 06:00 Chloride 97 mmol/L (98-107) L 04/07/18 06:00 Carbon Dioxide 29 mmol/L (21-33) 04/07/18 06:00 Anion Gap 18 (10-20) 04/07/18 06:00 BUN 13 mg/dL (7-21) 04/07/18 06:00 Creatinine 1.0 mg/dl (0.8-1.5) 04/07/18 06:00 Est GFR ( Amer) > 60 04/07/18 06:00 Est GFR (Non-Af Amer) > 60 04/07/18 06:00 POC Glucose (mg/dL) 144 mg/dL (65-110) H 04/07/18 11:15 Random Glucose 145 mg/dL (70-110) H 04/07/18 06:00 Hemoglobin A1c 7.1 % (4.2-6.5) H 04/07/18 06:00 Calcium 9.2 mg/dL (8.4-10.5) 04/07/18 06:00 Phosphorus 2.8 mg/dL (2.5-4.5) 04/07/18 06:00 Magnesium 1.6 mg/dL (1.7-2.2) L 04/07/18 06:00 Total Bilirubin 1.2 mg/dL (0.2-1.3) 04/07/18 06:00 AST 55 U/L (17-59) 04/07/18 06:00 ALT 53 U/L (7-56) 04/07/18 06:00 Alkaline Phosphatase 35 U/L (38-126) L D 04/07/18 06:00 Lactate Dehydrogenase 477 U/L (333-699) 04/06/18 10:10 Total Creatine Kinase 532 U/L (35-230) H 04/06/18 10:10 CK-MB (CK-2) 5.6 ng/mL (0.0-3.6) H 04/06/18 10:10 CK-MB (CK-2) % 1.1 % (2.5-3.0) L 04/06/18 10:10 Troponin I < 0.01 ng/mL D 04/06/18 21:38 Total Protein 7.3 g/dL (5.8-8.3) 04/07/18 06:00 Albumin 4.3 g/dL (3.0-4.8) 04/07/18 06:00 Globulin 3.0 gm/dL 04/07/18 06:00 Albumin/Globulin Ratio 1.4 (1.1-1.8) 04/07/18 06:00 Triglycerides 262 mg/dL (35-160) H 04/07/18 06:00 Cholesterol 202 mg/dL (130-200) H 04/07/18 06:00 LDL Cholesterol Direct 129 mg/dL (0-129) 04/07/18 06:00 HDL Cholesterol 37 mg/dL (29-60) 04/07/18 06:00 Free T4 1.26 ng/dL (0.78-2.19) 04/07/18 06:30 Thyroxine (T4) 9.1 ug/dL (5.5-11.0) 04/07/18 06:30 TSH 3rd Generation 5.28 mIU/mL (0.46-4.68) H 04/06/18 14:50 Influenza Typ A,B (EIA) Negative for flu a/b (NEGATIVE) 04/06/18 10:10 - Hospital Course Hospital Course: ADMITTING DIAGNOSES: 1. Chest pain 2. Hypomagnesemia DISCHARGE DIAGNOSES: 1. Chest pain 2. Hypomagnesemia 3. History of diabetes mellitus 4. History of gout 5. History of hyperlipidemia 6. History of hypertension CONSULTANTS CALLED: 1. Cardiology: Dr. Celestin MEDICATIONS UPON DISCHARGE: 1. Aspirin 81 mg PO daily 2. Clonidine 0.3 mg PO TID 3. Furosemide 20 mg PO daily 4. Hydralazine 10 mg PO TID PERTINENT LABORATORY STUDIES AND IMAGIN. Chest X-Ray: No active disease 2. EKG: Normal sinus rhythm. Nonspecific ST abnormality. 3. Extremity ultrasound: DVT negative bilaterally 4. Repeat EKG: No change from previous EKG. 5. Echocardiogram: Left ventricle normal size. Normal left ventricular wall thickness. Left ventricular ejection fraction 54%. Moderate pulmonary hypertension. REASON FOR ADMISSION: The patient presented to the hospital for evaluation of left sided chest pain and cough. Please see dictated H and P for details. HOSPITAL COURSE: Patient is a 62 year old male with past medical history of hypertension, hyperlipidemia, diabetes mellitus, gout who was evaluated for chest pain. On lab results, he was also found to have hypomagnesemia. A chest x- ray was done in the ED which showed no active disease. In addition, an EKG showed nonspecific ST changes. He was admitted to telemetry for further workup and management and was monitored. Troponins x3 were negative. Cardiology was consulted and recommended an echocardiogram and stress test. Because the troponins remained negative, patient was cleared to be discharged and instructed to see tax manager cpa for outpatient stress test. The echocardiogram was unremarkable and showed an EF of 54%. The repeat EKG showed no change from the previous EKG. Extremity ultrasound showed no DVTs bilaterally. Thyroid function tests were within normal limits. Patient stated that his chest pain resolved. His electrolytes were repleted accordingly. Patient was medically optimized for discharge with the below instructions and recommendations and was instructed to follow up with his primary medical doctor in addition to his tax manager cpa. - Date & Time of H&P Date of H&P: 04/07/18 Time of H&P: 16:15 Discharge Exam - Head Exam Head Exam: ATRAUMATIC, NORMAL INSPECTION - Eye Exam Eye Exam: EOMI, Normal appearance, PERRL Pupil Exam: NORMAL ACCOMODATION - ENT Exam ENT Exam: Mucous Membranes Moist, Normal External Ear Exam - Neck Exam Neck exam: Full Rom, Normal Inspection - Respiratory Exam Respiratory Exam: NORMAL BREATHING PATTERN. absent: Rales, Rhonchi, Wheezes, Respiratory Distress - Cardiovascular Exam Cardiovascular Exam: RRR, +S1, +S2 - GI/Abdominal Exam GI & Abdominal Exam: Normal Bowel Sounds, Soft. absent: Distended, Firm, Tenderness - Rectal Exam Rectal Exam: Deferred - Extremities Exam Extremities exam: full ROM, normal inspection - Neurological Exam Neurological exam: Alert, CN II-XII Intact, Normal Gait, Oriented x3 - Psychiatric Exam Psychiatric exam: Normal Affect, Normal Mood - Skin Skin Exam: Dry, Intact, Normal Color Discharge Plan - Discharge Medications Prescriptions: Aspirin [Adult Aspirin] 1 tab PO DAILY #30 tablet. Aspirin [Aspirin Chewable] 81 mg PO DAILY #30 chew - Follow Up Plan Condition: FAIR Disposition: HOME/ ROUTINE Instructions: Heart Healthy Diet, Hypokalemia (DC), Diabetes Type 2 (DC), Low Magnesium Level (DC), Chest Pain (DC), Chest Pain (GEN) Additional Instructions: Please continue your home medications as prescribed. Please take aspirin 81 mg daily. Please follow up with your primary care doctor Dr. Yang within 3-5 days. Please follow up with your primary care doctor for blood work to monitor magnesium levels. Please follow up with tax manager cpa Dr. Celestin within one week for outpatient stress test and review of your ultrasound of your heart. Please call for appointment. Return to ED if your symptoms return. Please refrain from using alcohol. Referrals: Carmen Celestin MD [Staff Provider] - Jonathan Yang DO [Primary Care Provider] - <Alla Ponce - Last Filed: 04/08/18 23:14> Provider - Provider Date of Admission: 04/06/18 11:21 Attending physician: Alla Ponce DO Primary care physician: Jonathan Yang DO Hospital Course - Lab Results Lab Results: Most Recent Lab Values WBC 7.3 10^3/ul (4.5-11.0) 04/07/18 06:00 RBC 3.89 10^6/uL (3.5-6.1) 04/07/18 06:00 Hgb 13.1 g/dL (14.0-18.0) L 04/07/18 06:00 Hct 39.2 % (42.0-52.0) L 04/07/18 06:00 MCV 100.8 fl (80.0-105.0) 04/07/18 06:00 MCH 33.7 pg (25.0-35.0) 04/07/18 06:00 MCHC 33.4 g/dl (31.0-37.0) 04/07/18 06:00 RDW 12.3 % (11.5-14.5) 04/07/18 06:00 Plt Count 252 10^3/uL (120.0-450.0) 04/07/18 06:00 MPV 10.1 fl (7.0-11.0) 04/07/18 06:00 Gran % 56.2 % (50.0-68.0) 04/06/18 10:10 Lymph % (Auto) 26.6 % (22.0-35.0) 04/06/18 10:10 Letcher % (Auto) 14.8 % (1.0-6.0) H 04/06/18 10:10 Eos % (Auto) 1.7 % (1.5-5.0) 04/06/18 10:10 Baso % (Auto) 0.7 % (0.0-3.0) 04/06/18 10:10 Gran # 4.72 (1.4-6.5) 04/06/18 10:10 Lymph # (Auto) 2.2 (1.2-3.4) 04/06/18 10:10 Letcher # (Auto) 1.2 (0.1-0.6) H 04/06/18 10:10 Eos # (Auto) 0.1 (0.0-0.7) 04/06/18 10:10 Baso # (Auto) 0.06 K/mm3 (0.0-2.0) 04/06/18 10:10 Sodium 141 mmol/L (132-148) 04/07/18 06:00 Potassium 3.6 mmol/L (3.6-5.0) 04/07/18 06:00 Chloride 97 mmol/L (98-107) L 04/07/18 06:00 Carbon Dioxide 29 mmol/L (21-33) 04/07/18 06:00 Anion Gap 18 (10-20) 04/07/18 06:00 BUN 13 mg/dL (7-21) 04/07/18 06:00 Creatinine 1.0 mg/dl (0.8-1.5) 04/07/18 06:00 Est GFR ( Amer) > 60 04/07/18 06:00 Est GFR (Non-Af Amer) > 60 04/07/18 06:00 POC Glucose (mg/dL) 144 mg/dL (65-110) H 04/07/18 11:15 Random Glucose 145 mg/dL (70-110) H 04/07/18 06:00 Hemoglobin A1c 7.1 % (4.2-6.5) H 04/07/18 06:00 Calcium 9.2 mg/dL (8.4-10.5) 04/07/18 06:00 Phosphorus 2.8 mg/dL (2.5-4.5) 04/07/18 06:00 Magnesium 1.6 mg/dL (1.7-2.2) L 04/07/18 06:00 Total Bilirubin 1.2 mg/dL (0.2-1.3) 04/07/18 06:00 AST 55 U/L (17-59) 04/07/18 06:00 ALT 53 U/L (7-56) 04/07/18 06:00 Alkaline Phosphatase 35 U/L (38-126) L D 04/07/18 06:00 Lactate Dehydrogenase 477 U/L (333-699) 04/06/18 10:10 Total Creatine Kinase 532 U/L (35-230) H 04/06/18 10:10 CK-MB (CK-2) 5.6 ng/mL (0.0-3.6) H 04/06/18 10:10 CK-MB (CK-2) % 1.1 % (2.5-3.0) L 04/06/18 10:10 Troponin I < 0.01 ng/mL D 04/06/18 21:38 Total Protein 7.3 g/dL (5.8-8.3) 04/07/18 06:00 Albumin 4.3 g/dL (3.0-4.8) 04/07/18 06:00 Globulin 3.0 gm/dL 04/07/18 06:00 Albumin/Globulin Ratio 1.4 (1.1-1.8) 04/07/18 06:00 Triglycerides 262 mg/dL (35-160) H 04/07/18 06:00 Cholesterol 202 mg/dL (130-200) H 04/07/18 06:00 LDL Cholesterol Direct 129 mg/dL (0-129) 04/07/18 06:00 HDL Cholesterol 37 mg/dL (29-60) 04/07/18 06:00 Free T4 1.26 ng/dL (0.78-2.19) 04/07/18 06:30 Thyroxine (T4) 9.1 ug/dL (5.5-11.0) 04/07/18 06:30 TSH 3rd Generation 5.28 mIU/mL (0.46-4.68) H 04/06/18 14:50 Influenza Typ A,B (EIA) Negative for flu a/b (NEGATIVE) 04/06/18 10:10 Attending/Attestation - Attestation I have personally seen and examined this patient.: Yes I have fully participated in the care of the patient.: Yes I have reviewed all pertinent clinical information, including history, physical exam and plan: Yes Notes (Text): Patient seen and examined by me at 10:35 AM 04/07/18 with resident at bedside. Case including discharge planning discussed with resident. Agree with above with following additions/changes. Patient is a 58-year-old male with past medical history significant for hypertension, type 2 diabetes, gout, and hypercholesterolemia that presented to the emergency room with left-sided rib pain radiating to the anterior chest. Patient was admitted with left sided rib and chest pain. Likely musculoskeletal secondary to chronic cough. ACS ruled out. Serial troponin within normal limits. Patient seen by cardiology. Patient was cleared for discharge by cardiology with outpatient follow up for stress test. 2D echo was done which per tax manager cpa showed EF of 54% and moderate pulmonary hypertension. Patient also had lower extremity edema which per patient is chronic. Lower extremity dopplers were negative for DVT. Patient also with Alcohol abuse. Counseled at length on cessation. Patient was placed on CIWA. No signs of withdrawal. Patient found to have severe hypomagnesemia secondary to alcohol abuse. Magnesium was replaced with IV magnesium. Patient was started on losartan, hydralazine, clonidine, labetalol for hypertension. Patient was placed on insulin sliding scale for diabetes. Hgb A1C 7.1. Patient counseled on diet and exercise. Patient continued on Tricor for hypercholesterolemia. All symptoms resolved up discharge. Patient was cleared for discharge by all consultants. Patient discharged home. Physical exam: Gen: Patient is awake and alert sitting up in bed in no acute distress HEENT: Normocephalic atraumatic, extraocular muscles intact, pupils equal reactive, oropharynx is pink and moist, no pharyngeal erythema or exudate appreciated, neck is supple. Hearing grossly intact. Ears and nose externally unremarkable. Cardiovascular: Normal rhythm, normal S1-S2, no murmurs rubs or gallops appreciated Pulmonary: Normal respiratory effort. No rhonchi, rales, or wheezing appreciated Gastrointestinal: Soft, obese abdomen, nontender, nondistended, positive bowel sounds all 4 quadrants, no guarding Musculoskeletal: Moves all extremities, no calf tenderness, no CVA tenderness Central nervous system: AAO 3 Dermatologic: Skin warm and dry Follow-up instructions: Patient to follow-up with primary care physician Dr. Yang within 3-5 days from discharge. Patient to take medications as prescribed. Patient to have repeat blood work with PMD to monitor magnesium levels. Patient to follow up with tax manager cpa Dr. Celestin within one week for outpatient stress test and review of your ultrasound of your heart. Please call for appointment. Patient counseled on alcohol cessation. All instructions explained to the patient in detail. Patient both understands and agrees to all instructions. Please see chart for full details. Time spent on discharging patient including chart review, medication reconciliation, discussion with the patient, consultants, and nursing staff was approximately 40 minutes.
--- NOTE | 2018-04-09 09:42 | US ---
HISTORY: Leg pain and swelling. Evaluate for DVT PHYSICIAN(S): Abraham Mar MD. TECHNIQUE: Duplex sonography and color-flow Doppler with graded compression were used to evaluate the deep venous systems of both lower extremities. FINDINGS: The visualized deep venous systems of both lower extremities are sonographically normal and compressible. Normal wave forms and augmentation are seen. There is no sonographic evidence for deep venous thrombosis in the visualized segments of both lower extremities. IMPRESSION: No sonographic evidence for deep venous thrombosis in the visualized segments of both lower extremities.
== END 2018-04-07 17:10 | disposition home or self-care (01) ==
LOC: ED 09:27 → ERH 11:21 → 2RSO 13:35
PROVIDERS: ADMIT Hospitalist; ATTEND Hospitalist
DX: R07.9 Chest pain, unspecified (principal); R05 Cough; E83.42 Hypomagnesemia; I10 Essential (primary) hypertension; E11.9 Type 2 diabetes mellitus without complications; M10.9 Gout, unspecified; E78.5 Hyperlipidemia, unspecified; E78.00 Pure hypercholesterolemia, unspecified; I27.20 Pulmonary hypertension, unspecified; F10.10 Alcohol abuse, uncomplicated; E66.9 Obesity, unspecified; Z68.36 Body mass index [BMI] 36.0-36.9, adult; Z79.84 Long term (current) use of oral hypoglycemic drugs; Z82.49 Family history of ischemic heart disease and other diseases of the circulatory system; Z79.82 Long term (current) use of aspirin
CPT/HCPCS: 36415; 71046; 80048; 80053; 80061; 82550; 82553; 82948; 83036; 83615; 83735; 84100; 84439; 84443; 84484; 85025; 85027; 87040; 87804; 93005; 93306; 93970; 96365; 96376; 99284; G0378; J3475